=== PATIENT | male | born 2000 | race Caucasian/White ===

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

== ENCOUNTER 2022-08-13 20:07 | Emergency (ER) | payer OTHER, BC, SELFPAY ==
[2022-08-13 20:18] VITALS: BP 160/99; PULSE 71; RESP 18; TEMP 36.6; O2SAT 100; BMI 37.6
[2022-08-13 20:22] VITALS: BP 159/90; PULSE 69; RESP 18; TEMP 36.6; O2SAT 98
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
[2022-08-13 21:00] VITALS: BP 140/90; PULSE 78; RESP 17; TEMP 36.7; O2SAT 98
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
[2022-08-13 21:12] VITALS: BMI 37.6
--- NOTE | 2022-08-13 21:26 | PC.NURSE ---
speaking with Dr. Ingram from at this time
--- NOTE | 2022-08-13 21:34 | PC.NURSE ---
[facility] recommending hard c collar and follow up with [facility]
== END 2022-08-13 21:30 | disposition home or self-care (01) ==
PROVIDERS: Emergency Provider Emergency Medicine; PCP Family Medicine
DX: S12.600A Unspecified displaced fracture of seventh cervical vertebra, initial encounter for closed fracture (principal); Y92.410 Unspecified street and highway as the place of occurrence of the external cause; V59.40XA Driver of pick-up truck or van injured in collision with unspecified motor vehicles in traffic accident, initial encounter; S01.91XA Laceration without foreign body of unspecified part of head, initial encounter; M54.9 Dorsalgia, unspecified; R51.9 Headache, unspecified; Z79.1 Long term (current) use of non-steroidal anti-inflammatories (NSAID); Z88.8 Allergy status to other drugs, medicaments and biological substances
CPT/HCPCS: 31605; 70450; 71045; 72125; 72128; 72170; 99285

== ENCOUNTER → 2023-02-26 15:04 | Outpatient (CLI) | payer OTHER, BC, SELFPAY ==
--- NOTE | 2023-02-26 15:10 | XR_ITS ---
FINAL REPORT CLINICAL HISTORY: great toe pain, in grown toe nail, has had nail removed multiple times FINDINGS: Three views show no evidence of acute displaced fracture or dislocation of the visualized bony architecture. The joint spaces appear normal. No evidence of bony destruction is seen. IMPRESSION: Unremarkable exam. Reviewed, Interpreted and Dictated by Josue Chamorro MD Transcribed by Alexandra Goldberg Authenticated and [facility]
== END ==
LOC: RAD 15:05
PROVIDERS: PCP Family Medicine; Visit Provider Podiatrist
DX: M79.672 Pain in left foot (principal)
CPT/HCPCS: 73630